=== PATIENT | male | born 1970 | race Caucasian/White ===

== ENCOUNTER 2021-03-07 22:26 | Inpatient (IN) | payer MEDICAID ==
[~2021-03-07] VITALS: Ht 180.3 cm; Wt 84.1 kg
[2021-03-08] VITALS (10 sets, daily range): BP systolic 11–130; BP diastolic 61–74
[2021-03-08] MEDS ORDERED: ondansetron/PF 4mg/2ml inj IV PRN ×3 (01:05→07:40)
[2021-03-08] MEDS ORDERED: HYDROcodone/acetaminophen 10/325mg tab PO PRN (01:05)
[2021-03-08] MEDS ORDERED: potassium CL 10mEq/100ml bag 100 ML IV PRN (01:05)
[2021-03-08] MEDS ORDERED: acetaminophen 325mg tablet PO PRN ×2 (01:05)
[2021-03-08] MEDS ORDERED: mag hydrox/Alum hydrox/simeth 30ml oral suspension PO PRN (01:05)
[2021-03-08] MEDS ORDERED: magnesium Cl slow-release 64mg tablet PO PRN (01:05)
[2021-03-08] MEDS ORDERED: magnesium 2GM in 50ml NS 50 ML IV PRN (01:05)
[2021-03-08] MEDS ORDERED: HYDROcodone/acetaminophen 5mg/325mg tablet PO PRN (01:05)
[2021-03-08] MEDS ORDERED: potassium Cl 20 mEq SR tablet PO PRN ×2 (01:05)
[2021-03-08] MEDS ORDERED: magnesium 4gm in 100ml NS 100 ML IV PRN (01:05)
[2021-03-08] MEDS ORDERED: morphine 2 MG/ML inj. syringe IV PRN ×4 (01:05→07:40)
[2021-03-08] MEDS ORDERED: HYDROmorphone 1 mg/ml syringe IV PRN (01:50)
[2021-03-08] MEDS: normal saline 1000ml 1,000 ML IV SCH ×2 (02:04→11:05)
[2021-03-08] MEDS ORDERED: NO HOME MEDS (02:44)
[2021-03-08] MEDS ORDERED: BUPIVAcaine 0.5% inj/PF 30 ML ONE (06:15)
[2021-03-08 06:27] LABS: MAGNESIUM 2.2 MG/DL (1.5-2.4); POTASSIUM 4.1 MMOL/L (3.5-5.1)
--- NOTE | 2021-03-08 06:47 | NUR ---
Problems reprioritized. Patient report given, questions answered & plan of care reviewed with KAILEY Gonzales.
--- NOTE | 2021-03-08 06:48 | NUR ---
Handoff report given to Elisa in the OR. Elisa states that pt will be picked up for surgery in the next 10 minutes. 8am antibiotic placed on chart at this time.
[2021-03-08] MEDS ORDERED: glycopyrrolate 0.2mg/ml inj ONE (06:55)
[2021-03-08] MEDS ORDERED: dexamethasone sod phosphate 10mg/ml inj ONE (06:55)
[2021-03-08] MEDS ORDERED: midazolam 1 mg/ML 2ml injection ONE (07:04)
[2021-03-08] MEDS ORDERED: fentaNYL/PF 50MCG/1 ML 2ML syringe ONE (07:04)
[2021-03-08] MEDS ORDERED: meperidine/PF 25mg/ml syringe ONE (07:05)
[2021-03-08] MEDS ORDERED: propofol inj 20 ML IV ONE (07:07)
[2021-03-08] MEDS ORDERED: LIDOcaine 2% (20mg/ml) 5ml vial ONE (07:07)
[2021-03-08] MEDS ORDERED: rocuronium 10mg/ml inj IV ONE (07:18)
[2021-03-08] MEDS ORDERED: ondansetron/PF 4mg/2ml inj ONE (07:19)
[2021-03-08] MEDS ORDERED: meperidine/PF 25mg/ml syringe IV PRN ×6 (07:35→07:40)
[2021-03-08] MEDS ORDERED: proCHLORperazine 10 MG/2 ml inj IV PRN ×2 (07:35→07:40)
[2021-03-08] MEDS ORDERED: morphine 4 MG/ML inj SYRINge IV PRN ×2 (07:35→07:40)
[2021-03-08] MEDS ORDERED: ringers solution, lacted 1,000 ML IV SCH ×2 (07:35→07:40)
[2021-03-08] MEDS ORDERED: acetaminophen 1,000mg/100ml IV 100 ML IV ONE (07:50)
[2021-03-08] MEDS ORDERED: heparin, porcine 5000 units/ml vial SQ SCH (08:00)
[2021-03-08] MEDS ORDERED: piperacillin/tazo 3.375gm/50ml 50 ML IV SCH (08:00)
[2021-03-08] MEDS ORDERED: K and/or MAG REPLACEMENT MC SCH (08:00)
[2021-03-08] MEDS ORDERED: nicotine 14mg patch - 24hr TD SCH (08:00)
--- NOTE | 2021-03-08 08:05 | NUR ---
Received from OR via [facility], accompanied by Anesthesiologist and report given by Anesthesiologist. PATIENT WAKING UP, NO S/S OF PAIN, V/S WNL, SCD ON, 20G TO LUE, LAP SURGICAL SITES TO ABDOMEN CDI.
--- NOTE | 2021-03-08 08:39 | NUR ---
This nurse received post-op report from KAILEY Owens. Pt to return from RR to room 354C. Dr Murillo rounded and stated pt may be discharged to home today when pt meets DC criteria. KAILEY Gonzales, notified.
--- NOTE | 2021-03-08 08:45 | NUR ---
PATIENT A&OX4, DENIES PAIN, V/S WNL, SCD ON, 20G TO LUE, LAP SURGICAL SITES TO ABDOMEN CDI. PATIENT TAKEN TO [facility] ROOM WITH ALL BELONGINGS AND HOOKED UP TO MONITORS IN ROOM AND GIVEN CALL LIGHT, REPORT GIVEN TO RN WHO HAS TAKEN OVER PATIENT CARE.
--- NOTE | 2021-03-08 08:56 | NUR ---
Pt resting without distress w/ at bedside. Pt c/o thirst, ice chips provided. IV LR at 100/h infusing to L AC. Pt denies nausea, abd non-distended. 4 lap sites w/ steri-strips. VS = 120/70, HR 67, 94% RA, RR 14.
[2021-03-08] MEDS ORDERED: pneumococcal 23-VAL P-sac vacc 25 mcg/0.5ml vial IMVAC ONE (10:00)
[2021-03-08] MEDS ORDERED: FLU VACC QS2021-22(6MOS UP)/PF 60 MCG/0.5 ML SYRINGE IM ONE (10:00)
--- NOTE | 2021-03-08 16:06 | NUR ---
Pt DC to home with rona. pt is A & O x4 and in no apparent distress. pt and rona verbalize understanding of all DC orders. pt understands the importance of following up with Dr Ellis and following DC orders. pt has needed no pain meds so he is OK not getting a prescription. pt's IV cath removed intact. pt refused his nicotine patch this am and also refused to be taken down via wheelchair, he was walked to the front walking where his rona picked him up and took him home.
[2021-03-08] MEDS ORDERED: temazepam 15mg capsule PO PRN (21:00)
== END 2021-03-08 16:05 | disposition home or self-care (01) | DRG 234 ==
LOC: SUR 3N 22:26 → UNDOADMIN 22:26 → SUR 3N 03-08 01:07
PROVIDERS: ADMIT Internal Medicine; ATTEND Family Medicine
PROC: 0DTJ4ZZ Resection of Appendix, Percutaneous Endoscopic Approach (ICD-10-PCS; principal; 2021-03-08 06:55)
DX: K35.80 Unspecified acute appendicitis (principal); B19.20 Unspecified viral hepatitis C without hepatic coma; F17.210 Nicotine dependence, cigarettes, uncomplicated; K21.9 Gastro-esophageal reflux disease without esophagitis; F32.A Depression, unspecified
CPT/HCPCS: 36415; 71045; 82948; 83605; 83735; 84132; 85610; 87040; 87081; 93005; A4215; A4618; A7000; G0378; J0131; J1100; J1170; J2001; J2175; J2250; J2270; J2405; J2704; J3010; J3490; J7030; J7120

== ENCOUNTER 2021-06-14 13:13 | Emergency (ER) | payer BC, MEDICAID ==
[~2021-06-14] VITALS: Ht 180.3 cm; Wt 84.0 kg
[2021-06-14 13:18] VITALS: BP 121/87
[2021-06-14] MEDS ORDERED: HYDROcodone/acetaminophen 5mg/325mg tablet PO ONE (14:10)
[2021-06-14] MEDS ORDERED: clindamycin 150mg capsule PO ONE (14:10)
[2021-06-14] MEDS ORDERED: normal saline 1000ML IV soln IVB ONE (14:25)
[2021-06-14] MEDS ORDERED: iohexol 300mg/ml 100ml inj. ONE (14:33)
[2021-06-14 14:43] LABS: BASOPHILS # (AUTO) 0.1 X10'3 (0-0.2); BASOPHILS % (AUTO) 0.7 % (0-1); EOSINOPHILS # (AUTO) 0.6 X10'3 (0-0.9); EOSINOPHILS % (AUTO) 7.4 % (0-6); HEMATOCRIT 46.6 % (42.0-52.0); HEMOGLOBIN 16.1 g/dl (14.0-17.9); LYMPHOCYTES % (AUTO) 23.2 % (21-51); MEAN CORPUSCULAR HEMOGLOBIN 31.5 PG (27.0-31.0); MEAN CORPUSCULAR HGB CONC 34.6 g/dL (33.0-36.5); MEAN PLATELET VOLUME 7.2 FL (7.4-10.4); MONOCYTES # (AUTO) 0.6 X10'3 (0-0.9); MONOCYTES % (AUTO) 6.9 % (2-12); NEUTROPHILS # (AUTO) 5.3 X10'3 (1.8-7.7); NEUTROPHILS % (AUTO) 61.8 % (42-75); PLATELET COUNT 307 X10'3 (140-440); RED BLOOD COUNT 5.12 X10'6 (4.70-6.10); RED CELL DISTRIBUTION WIDTH 13.1 % (11.5-14.5); WHITE BLOOD COUNT 8.5 X10'3 (4.5-11.0)
[2021-06-14 14:55] LABS: ALANINE AMINOTRANSFERASE 22 U/L (12-78); ALBUMIN 3.9 G/DL (3.4-5.0); ALBUMIN/GLOBULIN RATIO 1.1 (1.1-1.5); ALKALINE PHOSPHATASE 82 IU/L (46-116); ANION GAP 10 (8-16); ASPARTATE AMINO TRANSFERASE 18 U/L (10-37); BILIRUBIN,TOTAL 0.3 MG/DL (0.1-1.0); BLOOD UREA NITROGEN 15 MG/DL (7-18); BUN/CREATININE RATIO 16.3 (5.4-32.0); CALCIUM 9.1 MG/DL (8.5-10.1); CHLORIDE 103 MMOL/L (99-107); CREATININE 0.92 MG/DL (0.60-1.10); GLUCOSE 127 MG/DL (70-104); LIPASE 103 U/L (73-393); POTASSIUM 4.2 MMOL/L (3.5-5.1); SODIUM 137 MMOL/L (135-145); TOTAL CARBON DIOXIDE 24.4 MMOL/L (24-32); TOTAL PROTEIN 7.4 G/DL (6.4-8.2); eGFR 87 ML/MIN
[2021-06-14 15:07] LABS: CLARITY,URINE CLEAR (Clear); COLOR,URINE YELLOW (Yellow); GLUCOSE, URINE NEGATIVE (Neg); KETONES,URINE NEGATIVE (Neg); LEUKOCYTE ESTERASE ,URINE NEGATIVE (Neg); NITRITES, URINE NEGATIVE (Neg); OCCULT BLOOD,URINE NEGATIVE (Neg); PH,URINE 5.5 (4.8-8.0); PROTEIN,URINE NEGATIVE (Neg); UROBILINOGEN,URINE 0.2 E.U/dL (0.2-1.0)
[2021-06-14 15:16] LABS: UA COLLECTION TYPE CLN CATCH MIDSTREAM
== END 2021-06-14 18:20 | disposition home or self-care (01) ==
LOC: ER 13:15
DX: R42 Dizziness and giddiness (principal); R19.7 Diarrhea, unspecified; R10.84 Generalized abdominal pain; Z90.89 Acquired absence of other organs
CPT/HCPCS: 36415; 74177; 80053; 81003; 83690; 85025; 93005; 99285; J7030; Q9967